=== PATIENT | female | born 1965 | race Two or more races ===

== ENCOUNTER 2020-04-29 20:31 | Emergency (ER) | payer OTHER ==
[~2020-04-29] VITALS: Ht 154.9 cm; Wt 61.2 kg
--- NOTE | 2020-04-29 20:45 | NUR ---
Dr. Mcdonough at bedside for MSE.
[2020-04-29] MEDS ORDERED: KETOROLAC TROMETHAMINE 30 MG INJ IM ONE (21:00)
[2020-04-29] MEDS ORDERED: KETOROLAC TROMETHAMINE 30 MG INJ ONE (21:04)
--- NOTE | 2020-04-29 21:21 | NUR ---
Pt cleared for DC to home. Verbalizes feeling the medication working. Written and verbal after care instructions given. Patient verbalizes understanding of instructions. Stressed follow up or return to ER for worsening s/s. Walked out of ER in steady gait, with ride to go home. Patient discharged to home in stable condition.
[2020-04-29 21:23] VITALS: BP 140/80
== END 2020-04-29 21:24 | disposition home or self-care (01) ==
LOC: ER 20:36
DX: M25.551 Pain in right hip (principal); F17.210 Nicotine dependence, cigarettes, uncomplicated
CPT/HCPCS: 73502; 96372; 99283; 99406; J1885; A4663